=== PATIENT | female | born 1985 | race Hispanic/Latino ===

== ENCOUNTER 2018-01-14 07:23 | Day surgery (SDC) | payer MEDICAID ==
[2017-02-10 10:00] VITALS: BMI 40.2
[2018-01-14] MEDS ORDERED: Midazolam 2 MG/2 ML VIAL ONE (09:27)
[2018-01-14] MEDS ORDERED: Succinylcholine Chloride 20 mg/ml Syr (5 ml) IV ONE (09:28)
[2018-01-14] MEDS ORDERED: Propofol 10 mg/ml Inj (20 ML) ONE (09:28)
[2018-01-14] MEDS ORDERED: Lidocaine Hydrochloride 5 ML INJ ONE (09:28)
[2018-01-14] MEDS ORDERED: Oxycodone/Acetaminophen 5/325 mg Tab PO PRN (10:44)
[2018-01-14] MEDS ORDERED: Lactated Ringer's 1,000 ML IV SCH (10:45)
[2018-01-14] MEDS: HYDROmorphone 0.5 mg/0.5 ml ISec IVP PRN ×2 (10:45→11:13)
[2018-01-14] MEDS ORDERED: HYDROmorphone 0.5 mg/0.5 ml ISec ONE (10:48)
[2018-01-14] MEDS ORDERED: Lactated Ringer's 1,000 ML IV ONE (11:49)
[2018-01-14 12:44] VITALS: O2SAT 100
[2018-01-14 13:21] VITALS: RESP 16; TEMP 97.1
[2018-01-14 13:23] VITALS: BP 103/72; PULSE 64
--- NOTE | 2018-01-15 04:27 | OP ---
PROCEDURE DATE: 01/14/2018 PREOPERATIVE DIAGNOSIS: Abnormal uterine bleeding. POSTOPERATIVE DIAGNOSIS: Abnormal uterine bleeding as well as endometrial polyp. PROCEDURE PERFORMED: Hysteroscopy, dilation and curettage, and polypectomy. SURGEON: Curtis Ruiz M.D. TYPE OF ANESTHESIA: General endotracheal. ANESTHESIOLOGIST: Dr. Bubba Espinoza and , POLITICAL SCIENCE CHAIR COMPLICATIONS: None. ESTIMATED BLOOD LOSS: 50 mL. FLUID DEFICIT: None. URINE OUTPUT: At the beginning of the procedure being 50 mL. DESCRIPTION OF PROCEDURE: After informed consent was obtained, the patient was taken to the operating room and placed in the dorsal supine position. General anesthesia was then induced and the patient was then intubated without any difficulty. She was thereafter placed in dorsal lithotomy position, and prepped and draped in the usual sterile manner. The urinary bladder was straight catheterized for approximately 50 mL of clear urine. A speculum was then placed in the vagina and the anterior lip of the cervix was grasped with a single-toothed tenaculum. The cervix was thereafter gradually dilated and the hysteroscope was thereafter advanced into the patient's uterine cavity. Cervix revealed an endometrial polyp in the lower uterine segment extending to the cervical canal on a thin base as well as otherwise normal appearing uterine lining. The hysteroscope was removed and sharp curettage was performed along with the polypectomy and the polyp was noted to be removed and the specimens examined at that time of removal. Endometrial curettage as well as the polyp was sent to pathology and the tenaculum was removed. The tenaculum site was noted to be hemostatic. The speculum was removed. The patient was thereafter taken out of the lithotomy position, extubated, and taken to the recovery room in stable condition. Curtis Ruiz MD
== END 2018-01-14 13:23 | disposition home or self-care (01) ==
LOC: C.SDS 07:23
PROVIDERS: ATTEND Student in an Organized Health Care Education/Training Program
DX: N84.0 Polyp of corpus uteri (principal); N93.9 Abnormal uterine and vaginal bleeding, unspecified
CPT/HCPCS: 58558; 88305; J1170; J2250; J2704; J3010; J7120